=== PATIENT | male | born 1950 | race Caucasian/White ===

== ENCOUNTER → 2017-05-14 08:14 | Outpatient (CLI) | payer OTHER | END | disposition home or self-care (01) | LOC: LAB 08:14 | DX: D72.1 Eosinophilia (principal); B65.9 Schistosomiasis, unspecified; B78.9 Strongyloidiasis, unspecified ==

== ENCOUNTER → 2017-08-03 06:58 | Outpatient (CLI) | payer OTHER | END | disposition home or self-care (01) | LOC: LAB 06:58 | DX: E11.9 Type 2 diabetes mellitus without complications (principal); E78.2 Mixed hyperlipidemia; N39.0 Urinary tract infection, site not specified; E04.0 Nontoxic diffuse goiter; D53.9 Nutritional anemia, unspecified; D55.9 Anemia due to enzyme disorder, unspecified; D58.2 Other hemoglobinopathies; N36.0 Urethral fistula; I11.9 Hypertensive heart disease without heart failure ==

== ENCOUNTER 2017-12-10 06:32 | Outpatient (CLI) | payer OTHER | END 2017-12-10 06:37 | disposition home or self-care (01) | LOC: LAB 06:32 | DX: I10 Essential (primary) hypertension (principal); E78.4 Other hyperlipidemia; E03.4 Atrophy of thyroid (acquired); E11.9 Type 2 diabetes mellitus without complications ==

== ENCOUNTER 2018-03-19 07:18 | Outpatient (CLI) | payer OTHER | END 2018-03-19 07:31 | disposition home or self-care (01) | LOC: LAB 07:18 | DX: I11.0 Hypertensive heart disease with heart failure (principal); D53.8 Other specified nutritional anemias; N39.0 Urinary tract infection, site not specified; N36.2 Urethral caruncle; E11.9 Type 2 diabetes mellitus without complications; E78.2 Mixed hyperlipidemia; E04.0 Nontoxic diffuse goiter; E03.8 Other specified hypothyroidism ==

== ENCOUNTER 2018-06-30 09:21 | Emergency (ER) | payer OTHER ==
[~2018-06-30] VITALS: Ht 175.3 cm; Wt 92.1 kg
[2018-06-30] MEDS ORDERED: FORTAMET1000 MG PO (09:39)
[2018-06-30] MEDS ORDERED: VYTORIN 10-201 EACH PO (09:39)
[2018-06-30] MEDS ORDERED: AZO1 EACH MC (09:40)
[2018-06-30] MEDS ORDERED: SYNTHROID50 MCG PO (09:40)
[2018-06-30] MEDS ORDERED: [UNRECOGNIZED DRUG - OTHER] (09:41)
[2018-06-30] MEDS ORDERED: [UNRECOGNIZED DRUG - OTHER] (09:42)
[2018-06-30] MEDS ORDERED: TUSSI-PRES LIQ118 ML PO (10:57)
== END 2018-06-30 15:30 | disposition home or self-care (01) ==
LOC: ER 09:21
DX: J06.9 Acute upper respiratory infection, unspecified (principal)

== ENCOUNTER 2018-07-20 07:39 | Outpatient (CLI) | payer OTHER ==
[~2018-07-20 07:39] MED LIST: AZO1 EACH MC; FORTAMET1000 MG PO; SYNTHROID50 MCG PO; TUSSI-PRES LIQ118 ML PO; VYTORIN 10-201 EACH PO; [UNRECOGNIZED DRUG - OTHER]; [UNRECOGNIZED DRUG - OTHER]
== END 2018-07-20 07:51 | disposition home or self-care (01) ==
LOC: LAB 07:39
DX: I10 Essential (primary) hypertension (principal); D53.8 Other specified nutritional anemias; N36.0 Urethral fistula; E11.9 Type 2 diabetes mellitus without complications; E04.0 Nontoxic diffuse goiter; E78.2 Mixed hyperlipidemia; Z12.11 Encounter for screening for malignant neoplasm of colon; E55.9 Vitamin D deficiency, unspecified; E78.4 Other hyperlipidemia

== ENCOUNTER 2018-12-13 06:16 | Outpatient (CLI) | payer OTHER | END 2018-12-13 09:40 | disposition home or self-care (01) | LOC: LAB 06:16 | DX: D53.8 Other specified nutritional anemias (principal); N39.0 Urinary tract infection, site not specified; N36.2 Urethral caruncle; E78.2 Mixed hyperlipidemia; E11.9 Type 2 diabetes mellitus without complications; E04.0 Nontoxic diffuse goiter; I10 Essential (primary) hypertension; E03.8 Other specified hypothyroidism; E78.89 Other lipoprotein metabolism disorders ==

== ENCOUNTER → 2019-04-04 06:25 | Outpatient (CLI) | payer OTHER | END | disposition home or self-care (01) | LOC: LAB 06:25 | DX: I10 Essential (primary) hypertension (principal); E78.49 Other hyperlipidemia; E03.8 Other specified hypothyroidism; N39.0 Urinary tract infection, site not specified; E11.9 Type 2 diabetes mellitus without complications ==

== ENCOUNTER 2019-07-28 07:03 | Outpatient (CLI) | payer OTHER | END 2019-07-28 07:17 | disposition home or self-care (01) | LOC: LAB 07:03 | DX: I11.0 Hypertensive heart disease with heart failure (principal); D53.9 Nutritional anemia, unspecified; N39.0 Urinary tract infection, site not specified; E78.2 Mixed hyperlipidemia; E04.8 Other specified nontoxic goiter; N39.3 Stress incontinence (female) (male); E78.5 Hyperlipidemia, unspecified; E03.8 Other specified hypothyroidism; E11.9 Type 2 diabetes mellitus without complications ==

== ENCOUNTER 2019-12-27 06:25 | Outpatient (CLI) | payer OTHER | END 2019-12-27 06:45 | disposition home or self-care (01) | LOC: LAB 06:25 | PROVIDERS: ATTEND Specialist | DX: I11.0 Hypertensive heart disease with heart failure (principal); D53.8 Other specified nutritional anemias; N39.0 Urinary tract infection, site not specified; E04.8 Other specified nontoxic goiter; E55.9 Vitamin D deficiency, unspecified; E58 Dietary calcium deficiency; E22.2 Syndrome of inappropriate secretion of antidiuretic hormone; E78.49 Other hyperlipidemia; E03.8 Other specified hypothyroidism; E11.9 Type 2 diabetes mellitus without complications ==

== ENCOUNTER 2020-05-08 06:39 | Outpatient (CLI) | payer OTHER | END 2020-05-08 06:59 | disposition home or self-care (01) | LOC: LAB 06:39 | PROVIDERS: ATTEND Internal Medicine Endocrinology, Diabetes & Metabolism | DX: I10 Essential (primary) hypertension (principal); D53.8 Other specified nutritional anemias; N39.0 Urinary tract infection, site not specified; E78.2 Mixed hyperlipidemia; N36.2 Urethral caruncle; E04.8 Other specified nontoxic goiter; I20.8 Other forms of angina pectoris ==

== ENCOUNTER 2020-05-15 15:15 | Outpatient (CLI) | payer OTHER | END 2020-05-15 15:20 | disposition home or self-care (01) | LOC: LAB 15:15 | PROVIDERS: ATTEND Internal Medicine Allergy & Immunology | DX: B65.1 Schistosomiasis due to Schistosoma mansoni [intestinal schistosomiasis] (principal); D72.19 Other eosinophilia ==

== ENCOUNTER 2020-10-09 06:33 | Outpatient (CLI) | payer OTHER | END 2020-10-09 06:47 | disposition home or self-care (01) | LOC: LAB 06:33 | PROVIDERS: ATTEND Internal Medicine Endocrinology, Diabetes & Metabolism | DX: E04.9 Nontoxic goiter, unspecified (principal); M25.562 Pain in left knee ==

== ENCOUNTER → 2020-10-24 07:11 | Outpatient (CLI) | payer OTHER | END | disposition home or self-care (01) | LOC: LAB 07:11 | PROVIDERS: ATTEND Specialist | DX: E11.9 Type 2 diabetes mellitus without complications (principal) ==

== ENCOUNTER 2020-10-24 08:36 | Outpatient (CLI) | payer OTHER | END 2020-10-24 09:00 | disposition home or self-care (01) | LOC: TOM 08:36 | PROVIDERS: ATTEND Specialist | DX: R19.09 Other intra-abdominal and pelvic swelling, mass and lump (principal); K86.89 Other specified diseases of pancreas ==

== ENCOUNTER 2020-10-30 07:58 | Outpatient (CLI) | payer OTHER | END 2020-10-30 08:10 | disposition home or self-care (01) | LOC: LAB 07:58 | PROVIDERS: ATTEND Specialist | DX: C25.2 Malignant neoplasm of tail of pancreas (principal) ==

== ENCOUNTER 2020-10-31 08:22 | Outpatient (CLI) | payer OTHER | END 2020-10-31 08:23 | disposition home or self-care (01) | LOC: LAB 08:22 | DX: Z01.812 Encounter for preprocedural laboratory examination (principal) ==

== ENCOUNTER → 2021-02-11 07:20 | Outpatient (CLI) | payer OTHER | END | disposition home or self-care (01) | LOC: LAB 07:20 | PROVIDERS: ATTEND Specialist | DX: I10 Essential (primary) hypertension (principal); E78.49 Other hyperlipidemia; E03.8 Other specified hypothyroidism; E11.9 Type 2 diabetes mellitus without complications; K85.80 Other acute pancreatitis without necrosis or infection; R97.21 Rising PSA following treatment for malignant neoplasm of prostate ==

== ENCOUNTER 2021-06-12 07:11 | Outpatient (CLI) | payer OTHER | END 2021-06-12 07:27 | disposition home or self-care (01) | LOC: LAB 07:11 | PROVIDERS: ATTEND Specialist | DX: I10 Essential (primary) hypertension (principal); D53.9 Nutritional anemia, unspecified; N39.0 Urinary tract infection, site not specified; E78.2 Mixed hyperlipidemia; K76.1 Chronic passive congestion of liver; E11.9 Type 2 diabetes mellitus without complications ==

== ENCOUNTER → 2021-11-12 07:22 | Outpatient (CLI) | payer OTHER | END | disposition home or self-care (01) | LOC: LAB 07:22 | PROVIDERS: ATTEND Internal Medicine Endocrinology, Diabetes & Metabolism | DX: E78.2 Mixed hyperlipidemia (principal); I10 Essential (primary) hypertension; D53.9 Nutritional anemia, unspecified; E11.9 Type 2 diabetes mellitus without complications; D56.1 Beta thalassemia; E55.9 Vitamin D deficiency, unspecified; N36.2 Urethral caruncle; K76.1 Chronic passive congestion of liver; E58 Dietary calcium deficiency; E78.5 Hyperlipidemia, unspecified; E03.5 Myxedema coma; E74.31 Sucrase-isomaltase deficiency; R97.21 Rising PSA following treatment for malignant neoplasm of prostate ==

== ENCOUNTER 2022-03-24 06:41 | Outpatient (CLI) | payer OTHER | END 2022-03-24 06:42 | disposition home or self-care (01) | LOC: LAB 06:41 | PROVIDERS: ATTEND Specialist | DX: I10 Essential (primary) hypertension (principal); E78.5 Hyperlipidemia, unspecified; E03.1 Congenital hypothyroidism without goiter; E11.9 Type 2 diabetes mellitus without complications ==

== ENCOUNTER 2022-07-23 06:51 | Outpatient (CLI) | payer OTHER | END 2022-07-23 07:16 | disposition home or self-care (01) | LOC: LAB 06:51 | PROVIDERS: ATTEND Internal Medicine Endocrinology, Diabetes & Metabolism | DX: D53.9 Nutritional anemia, unspecified (principal); I11.0 Hypertensive heart disease with heart failure; N39.0 Urinary tract infection, site not specified; E78.2 Mixed hyperlipidemia; E04.9 Nontoxic goiter, unspecified; N36.2 Urethral caruncle; E11.9 Type 2 diabetes mellitus without complications; I10 Essential (primary) hypertension; E78.5 Hyperlipidemia, unspecified; E03.5 Myxedema coma; K86.89 Other specified diseases of pancreas ==

== ENCOUNTER 2022-10-24 06:36 | Outpatient (CLI) | payer OTHER | END 2022-10-24 06:38 | disposition home or self-care (01) | LOC: LAB 06:36 | PROVIDERS: ATTEND Specialist | DX: E78.5 Hyperlipidemia, unspecified (principal); I10 Essential (primary) hypertension; E03.5 Myxedema coma; E11.9 Type 2 diabetes mellitus without complications; N39.0 Urinary tract infection, site not specified ==

== ENCOUNTER 2023-01-09 07:10 | Outpatient (CLI) | payer OTHER ==
[2023-01-09 08:46] LABS: ALBUMIN 3.4 gm/dL (3.4-5.0); BILIRUBIN TOTAL 0.36 mg/dL (0.3-1.2); CALCIUM 8.9 mg/dL (8.5-10.1); CREATININE SERUM 1.06 mg/dL (0.70-1.30); GFR 68.29; GLOBULINA 3.3 G/DL (2.4-3.5); POTASSIUM 4.52 mEq/L (3.5-5.1); TOTAL PROTEIN 6.7 gm/dL (6.4-8.2)
== END 2023-01-09 07:11 | disposition home or self-care (01) ==
LOC: LAB 07:10
PROVIDERS: ATTEND Internal Medicine Endocrinology, Diabetes & Metabolism
DX: C25.3 Malignant neoplasm of pancreatic duct (principal); C18.9 Malignant neoplasm of colon, unspecified; D50.1 Sideropenic dysphagia; E04.9 Nontoxic goiter, unspecified; I10 Essential (primary) hypertension; N39.0 Urinary tract infection, site not specified; N36.2 Urethral caruncle; E11.9 Type 2 diabetes mellitus without complications; K76.2 Central hemorrhagic necrosis of liver

== ENCOUNTER 2023-02-25 06:40 | Outpatient (CLI) | payer OTHER ==
[2023-02-25 07:27] LABS: URINE APPEARANCE Clear; URINE BILIRRUBIN Negative (NEGATIVE); URINE BLOOD Negative; URINE COLOR Yellow; URINE GLUCOSE Negative (NEGATIVE); URINE LEUKOCYTE Negative; URINE NITRATE Negative; URINE PROTEIN Negative (NEGATIVE); URINE UROBILINOGEN 0.2 E.U./dl
[2023-02-25 07:32] LABS: URINE BACTERIA 17.6 uL (0.0-1933); URINE RBC 9.3 uL (0.0-20.8)
[2023-02-25 07:39] LABS: URINE WBC 1.3 uL (0.0-23.2)
[2023-02-25 08:25] LABS: HEMATOCRIT 35.5 % (39.0-48.0); HEMOGLOBIN 11.9 g/dL (13-16.00); MEAN CELL VOLUME 91.6 fL (80.0-100.00); MEAN CORPUSCULAR HEMOGLOBIN 30.8 pg (27.00-32.0); MEAN CORPUSCULAR HGB CONC 33.6 g/dl (32.0-36.0); PLATELET COUNT 249 K/uL (150-450); RED BLOOD COUNT 3.88 M/uL (4.00-6.00); RED CELL DISTRIBUTION WIDTH 13.9 % (11.5-14.5)
[2023-02-25 08:37] LABS: ALBUMIN 3.2 gm/dL (3.4-5.0); BILIRUBIN TOTAL 0.62 mg/dL (0.3-1.2); CHOL HDL RATIO 3.4 (0-5.0); CREATININE SERUM 1.13 mg/dL (0.70-1.30); FREE TRIODOTIRONINE 2.23 pg/ml (2.18-3.98); GFR 63.43; GLOBULINA 3.4 G/DL (2.4-3.5); POTASSIUM 4.17 mEq/L (3.5-5.1); PROSTATIC SPECIFIC ANTIGEN 2.13 NG/ML (0.010-4.00); T4 FREE 1.12 NG/ML (0.76-1.46); T4 TOTAL 8.35 UG/DL (4.5-12.1); TOTAL PROTEIN 6.6 gm/dL (6.4-8.2); TSH 1.35 uIU/mL (0.358-3.74)
== END 2023-02-25 06:41 | disposition home or self-care (01) ==
LOC: LAB 06:40
PROVIDERS: ATTEND Specialist
DX: D50.1 Sideropenic dysphagia (principal); E78.5 Hyperlipidemia, unspecified; E03.5 Myxedema coma; E11.9 Type 2 diabetes mellitus without complications

== ENCOUNTER 2023-06-23 07:12 | Outpatient (CLI) | payer OTHER ==
[2023-06-23 08:32] LABS: HEMATOCRIT 37.2 % (39.0-48.0); HEMOGLOBIN 12.5 g/dL (13-16.00); MEAN CELL VOLUME 93.2 fL (80.0-100.00); MEAN CORPUSCULAR HEMOGLOBIN 31.3 pg (27.00-32.0); MEAN CORPUSCULAR HGB CONC 33.5 g/dl (32.0-36.0); PLATELET COUNT 255 K/uL (150-450); RED BLOOD COUNT 3.99 M/uL (4.00-6.00); RED CELL DISTRIBUTION WIDTH 13.4 % (11.5-14.5)
[2023-06-23 08:57] LABS: URINE APPEARANCE Clear; URINE BILIRRUBIN Negative (NEGATIVE); URINE BLOOD Negative; URINE COLOR Yellow; URINE GLUCOSE Negative (NEGATIVE); URINE LEUKOCYTE Negative; URINE NITRATE Negative; URINE PROTEIN Negative (NEGATIVE); URINE UROBILINOGEN 0.2 E.U./dl
[2023-06-23 09:02] LABS: URINE RBC 6.7 uL (0.0-20.8)
[2023-06-23 09:18] LABS: ALBUMIN 3.3 gm/dL (3.4-5.0); BILIRUBIN TOTAL 0.52 mg/dL (0.3-1.2); CALCIUM 8.9 mg/dL (8.5-10.1); CHOL HDL RATIO 3.6 (0-5.0); CREATININE SERUM 0.98 mg/dL (0.70-1.30); FERRITIN 25.3 NG/ML (26-388); GFR 74.56; GLOBULINA 3.3 G/DL (2.4-3.5); POTASSIUM 4.47 mEq/L (3.5-5.1); T4 TOTAL 9.02 UG/DL (4.5-12.1); TOTAL PROTEIN 6.6 gm/dL (6.4-8.2); TSH 1.43 uIU/mL (0.358-3.74)
[2023-06-23 09:19] LABS: URINE BACTERIA 2.5 uL (0.0-1933); URINE EPITHELIAL CELLS 0.1 uL (0.0-38.8); URINE WBC 0.4 uL (0.0-23.2)
[2023-06-23 11:55] LABS: ob NEGATIVE (NEGATIVE)
== END 2023-06-23 07:31 | disposition home or self-care (01) ==
LOC: EDBD 07:12 → LAB 07:12
PROVIDERS: ATTEND Specialist
DX: I10 Essential (primary) hypertension (principal); E78.5 Hyperlipidemia, unspecified; E03.5 Myxedema coma; E11.9 Type 2 diabetes mellitus without complications; E78.2 Mixed hyperlipidemia; N39.0 Urinary tract infection, site not specified; D50.1 Sideropenic dysphagia; D53.9 Nutritional anemia, unspecified; N18.2 Chronic kidney disease, stage 2 (mild); Z12.11 Encounter for screening for malignant neoplasm of colon

== ENCOUNTER 2023-11-16 07:23 | Outpatient (CLI) | payer OTHER ==
[2023-11-16 08:13] LABS: URINE APPEARANCE Clear; URINE BILIRRUBIN Negative (NEGATIVE); URINE BLOOD Negative; URINE COLOR Yellow; URINE GLUCOSE Negative (NEGATIVE); URINE LEUKOCYTE Negative; URINE NITRATE Negative; URINE PROTEIN Negative (NEGATIVE); URINE UROBILINOGEN 0.2 E.U./dl
[2023-11-16 08:17] LABS: HEMOGLOBIN 12.3 g/dL (13-16.00); MEAN CELL VOLUME 93.4 fL (80.0-100.00); MEAN CORPUSCULAR HEMOGLOBIN 31.8 pg (27.00-32.0); PLATELET COUNT 270 K/uL (150-450); RED BLOOD COUNT 3.86 M/uL (4.00-6.00); RED CELL DISTRIBUTION WIDTH 13.2 % (11.5-14.5); URINE EPITHELIAL CELLS 2.1 uL (0.0-38.8); URINE RBC 5.9 uL (0.0-20.8)
[2023-11-16 08:23] LABS: URINE WBC 1.6 uL (0.0-23.2)
[2023-11-16 09:43] LABS: ALBUMIN 3.5 gm/dL (3.4-5.0); BILIRUBIN TOTAL 0.66 mg/dL (0.3-1.2); CALCIUM 8.8 mg/dL (8.5-10.1); CHOL HDL RATIO 3.7 (0-5.0); CREATININE SERUM 1.19 mg/dL (0.70-1.30); GFR 59.59; GLOBULINA 3.4 G/DL (2.4-3.5); POTASSIUM 4.4 mEq/L (3.5-5.1); T4 TOTAL 9.98 UG/DL (4.5-12.1); TOTAL PROTEIN 6.9 gm/dL (6.4-8.2); TSH 1.4 uIU/mL (0.358-3.74)
== END 2023-11-16 07:24 | disposition home or self-care (01) ==
LOC: LAB 07:23
PROVIDERS: ATTEND Specialist
DX: E78.5 Hyperlipidemia, unspecified (principal); E03.5 Myxedema coma; E11.9 Type 2 diabetes mellitus without complications; I10 Essential (primary) hypertension

== ENCOUNTER → 2023-12-29 06:35 | Outpatient (CLI) | payer OTHER ==
[2023-12-29 08:06] LABS: PH,URINE 5.5 (5.0-8.0); URINE APPEARANCE Clear; URINE BILIRRUBIN Negative (NEGATIVE); URINE BLOOD Negative; URINE COLOR Yellow; URINE GLUCOSE Negative (NEGATIVE); URINE KETONE Negative (NEGATIVE); URINE LEUKOCYTE Negative; URINE NITRATE Negative; URINE PROTEIN Negative (NEGATIVE); URINE UROBILINOGEN 0.2 E.U./dl
[2023-12-29 08:10] LABS: URINE RBC 4.8 uL (0.0-20.8)
[2023-12-29 08:15] LABS: URINE BACTERIA 2.5 uL (0.0-1933); URINE CAST 0.15 uL (0.0-1.40); URINE EPITHELIAL CELLS 0.9 uL (0.0-38.8); URINE WBC 0.6 uL (0.0-23.2)
[2023-12-29 08:21] LABS: HEMATOCRIT 36.9 % (39.0-48.0); HEMOGLOBIN 12.1 g/dL (13-16.00); MEAN CELL VOLUME 93.2 fL (80.0-100.00); MEAN CORPUSCULAR HEMOGLOBIN 30.5 pg (27.00-32.0); MEAN CORPUSCULAR HGB CONC 32.8 g/dl (32.0-36.0); PLATELET COUNT 277 K/uL (150-450); RED BLOOD COUNT 3.96 M/uL (4.00-6.00); RED CELL DISTRIBUTION WIDTH 13.2 % (11.5-14.5)
[2023-12-29 09:16] LABS: GAMMA GLUTAMIL TRANSFERASE 27 U/L (15-85)
[2023-12-29 09:24] LABS: ALBUMIN 3.5 gm/dL (3.4-5.0); ALKALINE PHOSPHATASE 73 U/L (50-136); ALT/SGPT 68 U/L (12-78); ANION GAP 9 (10.0-20.0); AST/SGOT 30 U/L (15-37); BILIRUBIN TOTAL 0.48 mg/dL (0.3-1.2); BLOOD UREA NITROGEN 18 mg/dL (7-18); BUN CREA RATIO 18 (7.0-25.0); CALCIUM 8.9 mg/dL (8.5-10.1); CARBON DIOXIDE 28 mEq/L (21-32); CHLORIDE 104 mmol/L (98-107); CHOL HDL RATIO 4.3 (0-5.0); CHOLESTEROL 188 mg/dL (0-200); CREATININE SERUM 1.02 mg/dL (0.70-1.30); GLOBULINA 3.5 G/DL (2.4-3.5); GLUCOSE FASTING 93 mg/dL (65-100); HDL 44 mg/dl (40-60); LDH 139 U/L (87-241); LIPASE 27 U/L (13-75); OSMOLALITY SERUM 275 MOSM/KG (275-295); PHOSPHOKINASE CREATININE 119 U/L (39-308); POTASSIUM 4.34 mEq/L (3.5-5.1); SODIUM 137 mmol/L (136-145); T4 FREE 1.18 NG/ML (0.76-1.46); TOTAL IRON BINDING CAPACITY 348 ug/dl (250-450)
[2023-12-29 09:28] LABS: C-REACTIVE PROTEIN < 0.29 MG/DL (0.00-0.29); FERRITIN 19.6 NG/ML (26-388); LDL 93 mg/dl (0-130); TRIGLYCERIDES 257 mg/dL (0-150); VLDL 51 (0-39)
== END | disposition home or self-care (01) ==
LOC: LAB 06:35
PROVIDERS: ATTEND Urology
DX: I11.0 Hypertensive heart disease with heart failure (principal); D03.9 Melanoma in situ, unspecified; E78.2 Mixed hyperlipidemia; E04.9 Nontoxic goiter, unspecified; E11.9 Type 2 diabetes mellitus without complications; N39.0 Urinary tract infection, site not specified; D50.1 Sideropenic dysphagia; N40.0 Benign prostatic hyperplasia without lower urinary tract symptoms; Z12.11 Encounter for screening for malignant neoplasm of colon; K76.1 Chronic passive congestion of liver; R97.21 Rising PSA following treatment for malignant neoplasm of prostate

== ENCOUNTER 2024-03-28 06:38 | Outpatient (CLI) | payer OTHER ==
[2024-03-28 07:36] LABS: HEMATOCRIT 37.5 % (39.0-48.0); HEMOGLOBIN 12.6 g/dL (13-16.00); MEAN CELL VOLUME 92.2 fL (80.0-100.00); MEAN CORPUSCULAR HEMOGLOBIN 31.1 pg (27.00-32.0); MEAN CORPUSCULAR HGB CONC 33.8 g/dl (32.0-36.0); PLATELET COUNT 250 K/uL (150-450); RED BLOOD COUNT 4.06 M/uL (4.00-6.00); RED CELL DISTRIBUTION WIDTH 13.3 % (11.5-14.5)
[2024-03-28 07:42] LABS: PH,URINE 5.5 (5.0-8.0); URINE APPEARANCE Cloudy; URINE BACTERIA 112.5 uL (0.0-1933); URINE BILIRRUBIN Negative (NEGATIVE); URINE BLOOD Negative; URINE COLOR Yellow; URINE EPITHELIAL CELLS 3.6 uL (0.0-38.8); URINE GLUCOSE Negative (NEGATIVE); URINE KETONE Negative (NEGATIVE); URINE LEUKOCYTE Negative; URINE NITRATE Negative; URINE PROTEIN 30 (NEGATIVE); URINE UROBILINOGEN 0.2 E.U./dl; URINE WBC 46.3 uL (0.0-23.2)
[2024-03-28 08:03] LABS: URINE CAST 0.14 uL (0.0-1.40)
[2024-03-28 08:55] LABS: ALBUMIN 3.4 gm/dL (3.4-5.0); BILIRUBIN TOTAL 0.39 mg/dL (0.3-1.2); CALCIUM 8.9 mg/dL (8.5-10.1); CHOL HDL RATIO 3.8 (0-5.0); CREATININE SERUM 1.1 mg/dL (0.70-1.30); GFR 65.26; GLOBULINA 3.7 G/DL (2.4-3.5); POTASSIUM 4.62 mEq/L (3.5-5.1); PROSTATIC SPECIFIC ANTIGEN 2.47 NG/ML (0.010-4.00); T4 TOTAL 9.79 UG/DL (4.5-12.1); TOTAL PROTEIN 7.1 gm/dL (6.4-8.2); TSH 1.99 uIU/mL (0.358-3.74)
== END 2024-03-28 06:44 | disposition home or self-care (01) ==
LOC: LAB 06:38
DX: R97.21 Rising PSA following treatment for malignant neoplasm of prostate (principal); I10 Essential (primary) hypertension; E78.5 Hyperlipidemia, unspecified; E03.5 Myxedema coma; E11.9 Type 2 diabetes mellitus without complications; D64.9 Anemia, unspecified

== ENCOUNTER → 2024-06-03 07:26 | Outpatient (CLI) | payer OTHER ==
[2024-06-03 08:32] LABS: HEMATOCRIT 37.6 % (39.0-48.0); HEMOGLOBIN 12.5 g/dL (13-16.00); MEAN CELL VOLUME 92.4 fL (80.0-100.00); MEAN CORPUSCULAR HEMOGLOBIN 30.8 pg (27.00-32.0); MEAN CORPUSCULAR HGB CONC 33.3 g/dl (32.0-36.0); PLATELET COUNT 270 K/uL (150-450); RED BLOOD COUNT 4.07 M/uL (4.00-6.00); RED CELL DISTRIBUTION WIDTH 13.1 % (11.5-14.5)
[2024-06-03 08:47] LABS: PH,URINE 5.5 (5.0-8.0); URINE APPEARANCE Clear; URINE BILIRRUBIN Negative (NEGATIVE); URINE BLOOD Negative; URINE COLOR Yellow; URINE GLUCOSE Negative (NEGATIVE); URINE KETONE Negative (NEGATIVE); URINE LEUKOCYTE Negative; URINE NITRATE Negative; URINE PROTEIN Negative (NEGATIVE); URINE UROBILINOGEN 0.2 E.U./dl
[2024-06-03 08:51] LABS: URINE BACTERIA 4.8 uL (0.0-1933); URINE RBC 4.1 uL (0.0-20.8)
[2024-06-03 09:02] LABS: URINE EPITHELIAL CELLS 0.6 uL (0.0-38.8); URINE WBC 0.6 uL (0.0-23.2)
[2024-06-03 09:35] LABS: ALBUMIN 3.3 gm/dL (3.4-5.0); BILIRUBIN TOTAL 0.52 mg/dL (0.3-1.2); CHOL HDL RATIO 3.4 (0-5.0); CREATININE SERUM 1.12 mg/dL (0.70-1.30); GFR 63.74; GLOBULINA 3.5 G/DL (2.4-3.5); POTASSIUM 4.76 mEq/L (3.5-5.1); T4 FREE 1.11 NG/ML (0.76-1.46); TOTAL PROTEIN 6.8 gm/dL (6.4-8.2); TSH 1.17 uIU/mL (0.358-3.74)
== END | disposition home or self-care (01) ==
LOC: LAB 07:26
PROVIDERS: ATTEND Internal Medicine Endocrinology, Diabetes & Metabolism
DX: I11.0 Hypertensive heart disease with heart failure (principal); N39.0 Urinary tract infection, site not specified; N36.2 Urethral caruncle; D53.9 Nutritional anemia, unspecified; E78.2 Mixed hyperlipidemia; E11.9 Type 2 diabetes mellitus without complications; E04.9 Nontoxic goiter, unspecified; Z12.11 Encounter for screening for malignant neoplasm of colon

== ENCOUNTER 2024-07-26 06:24 | Outpatient (CLI) | payer OTHER ==
[2024-07-26 07:44] LABS: HEMATOCRIT 37.3 % (39.0-48.0); HEMOGLOBIN 12.3 g/dL (13-16.00); MEAN CELL VOLUME 94.3 fL (80.0-100.00); MEAN CORPUSCULAR HGB CONC 32.9 g/dl (32.0-36.0); PLATELET COUNT 253 K/uL (150-450); RED BLOOD COUNT 3.95 M/uL (4.00-6.00); RED CELL DISTRIBUTION WIDTH 13.2 % (11.5-14.5)
[2024-07-26 08:00] LABS: PH,URINE 5.5 (5.0-8.0); URINE APPEARANCE Clear; URINE BILIRRUBIN Negative (NEGATIVE); URINE BLOOD Negative; URINE COLOR Yellow; URINE GLUCOSE Negative (NEGATIVE); URINE KETONE Negative (NEGATIVE); URINE LEUKOCYTE Negative; URINE NITRATE Negative; URINE PROTEIN Negative (NEGATIVE)
[2024-07-26 08:05] LABS: URINE BACTERIA 4.8 uL (0.0-1933); URINE RBC 3.3 uL (0.0-20.8)
[2024-07-26 08:12] LABS: URINE EPITHELIAL CELLS 0.1 uL (0.0-38.8); URINE WBC 0.6 uL (0.0-23.2)
[2024-07-26 08:35] LABS: ALBUMIN 3.3 gm/dL (3.4-5.0); BILIRUBIN TOTAL 0.54 mg/dL (0.3-1.2); CALCIUM 8.9 mg/dL (8.5-10.1); CHOL HDL RATIO 3.4 (0-5.0); CREATININE SERUM 1.06 mg/dL (0.70-1.30); GFR 67.93; GLOBULINA 3.4 G/DL (2.4-3.5); POTASSIUM 4.43 mEq/L (3.5-5.1); T4 TOTAL 9.04 UG/DL (4.5-12.1); TOTAL PROTEIN 6.7 gm/dL (6.4-8.2); TSH 2.02 uIU/mL (0.358-3.74)
== END 2024-07-26 06:32 | disposition home or self-care (01) ==
LOC: LAB 06:24
DX: E78.5 Hyperlipidemia, unspecified (principal); E03.5 Myxedema coma; I10 Essential (primary) hypertension; E11.9 Type 2 diabetes mellitus without complications

== ENCOUNTER 2024-12-06 06:48 | Outpatient (CLI) | payer OTHER ==
[2024-12-06 07:37] LABS: BASO % 0.8 % (0.1-1.2); EOS # 0.33 (0.04-0.54); EOS % 4.3 % (0.7-7.0); LYMPH # 2.27 (1.18-3.74); LYMPH % 29.3 % (19.3-53.1); MEAN PLATELET VOLUME 10.10 fl (9.4-12.4); MONO # 0.77 (0.24-0.82); MONO % 9.9 % (4.7-12.5); NEUT # 4.31 (1.56-6.13); NEUT % 55.4 % (34.0-71.1); RED CELL DISTRIBUTION WIDTH 12.6 % (11.6-14.4)
[2024-12-06 08:11] LABS: URINE APPEARANCE Cloudy; URINE BILIRRUBIN Negative (NEGATIVE); URINE BLOOD Negative; URINE COLOR Yellow; URINE GLUCOSE Negative (NEGATIVE); URINE KETONE Negative (NEGATIVE); URINE LEUKOCYTE Negative; URINE NITRATE Negative; URINE PROTEIN Trace (NEGATIVE); URINE UROBILINOGEN 0.2 E.U./dl
[2024-12-06 08:16] LABS: URINE BACTERIA 21.6 uL (0.0-1933); URINE EPITHELIAL CELLS 1.8 uL (0.0-38.8); URINE RBC 6.7 uL (0.0-20.8); URINE WBC 12.6 uL (0.0-23.2)
[2024-12-06 08:58] LABS: ALT/SGPT 23.0 U/L (12-78); AST/SGOT 13.0 U/L (15-37); BILIRUBIN TOTAL 0.52 mg/dL (0.3-1.2); BUN CREA RATIO 17.0 (7.0-25.0); CHOL HDL RATIO 3.1 (0-5.0); CREATININE SERUM 1.05 mg/dL (0.70-1.30); GFR 68.67; GLOBULINA 3.6 G/DL (2.4-3.5); GLUCOSE FASTING 98.0 mg/dL (65-100); HDL 38.0 mg/dl (40-60); LDH 112.0 U/L (87-241); LDL 45.0 mg/dl (0-130); OSMOLALITY SERUM 278.0 MOSM/KG (275-295); PHOSPHOKINASE CREATININE 86.0 U/L (39-308); PROSTATIC SPECIFIC ANTIGEN 1.54 NG/ML (0.010-4.00); T3 UPTAKE 34.0 % (33-40); T4 TOTAL 8.06 UG/DL (4.5-12.1); TSH 1.87 uIU/mL (0.358-3.74); VLDL 32.0 (0-39)
[2024-12-06 08:59] LABS: URINE CAST 0.14 uL (0.0-1.40); URINE SPERM MANY
[2024-12-06 09:48] LABS: GAMMA GLUTAMIL TRANSFERASE 17.0 U/L (15-85)
[2024-12-06 14:31] LABS: T3 TOTAL 1.06 ng/ml (0.846-2.02); VITAMIN D3 25 HYDROXY 54.21 ng/ml (30-120)
[2024-12-07 09:08] LABS: % FREE PSA 39.2 % (.)
== END 2024-12-06 06:49 | disposition home or self-care (01) ==
LOC: LAB 06:48
PROVIDERS: ATTEND Internal Medicine Endocrinology, Diabetes & Metabolism
DX: I10 Essential (primary) hypertension (principal); E78.5 Hyperlipidemia, unspecified; E03.5 Myxedema coma; E11.9 Type 2 diabetes mellitus without complications; D53.9 Nutritional anemia, unspecified; E78.2 Mixed hyperlipidemia; N39.0 Urinary tract infection, site not specified; N36.2 Urethral caruncle; E04.9 Nontoxic goiter, unspecified; K76.1 Chronic passive congestion of liver; E61.3 Manganese deficiency; E83.59 Other disorders of calcium metabolism; E53.8 Deficiency of other specified B group vitamins; E55.9 Vitamin D deficiency, unspecified; Z12.11 Encounter for screening for malignant neoplasm of colon; K92.1 Melena

== ENCOUNTER 2025-04-03 07:01 | Outpatient (CLI) | payer OTHER ==
[2025-04-03 08:53] LABS: URINE APPEARANCE Clear; URINE BILIRRUBIN Negative (NEGATIVE); URINE BLOOD Negative; URINE COLOR Yellow; URINE GLUCOSE Negative (NEGATIVE); URINE KETONE Negative (NEGATIVE); URINE LEUKOCYTE Trace; URINE NITRATE Negative; URINE PROTEIN Negative (NEGATIVE); URINE UROBILINOGEN 0.2 E.U./dl
[2025-04-03 08:55] LABS: BASO % 0.8 % (0.1-1.2); EOS # 0.39 (0.04-0.54); EOS % 5.0 % (0.7-7.0); LYMPH # 2.53 (1.18-3.74); LYMPH % 32.1 % (19.3-53.1); MEAN PLATELET VOLUME 10.70 fl (9.4-12.4); MONO # 0.73 (0.24-0.82); MONO % 9.3 % (4.7-12.5); NEUT # 4.14 (1.56-6.13); NEUT % 52.5 % (34.0-71.1); RED CELL DISTRIBUTION WIDTH 12.5 % (11.6-14.4)
[2025-04-03 08:57] LABS: URINE BACTERIA 11.4 uL (0.0-1933); URINE RBC 7.2 uL (0.0-20.8)
[2025-04-03 09:31] LABS: ALT/SGPT 26.0 U/L (12-78); AST/SGOT 13.0 U/L (15-37); BILIRUBIN TOTAL 0.44 mg/dL (0.3-1.2); BUN CREA RATIO 21.0 (7.0-25.0); CHOL HDL RATIO 3.4 (0-5.0); CREATININE SERUM 1.13 mg/dL (0.70-1.30); GFR 63.09; GLOBULINA 3.4 G/DL (2.4-3.5); GLUCOSE FASTING 104.0 mg/dL (65-100); HDL 40.0 mg/dl (40-60); LDL 59.0 mg/dl (0-130); OSMOLALITY SERUM 282.0 MOSM/KG (275-295); PHOSPHOKINASE CREATININE 94.0 U/L (39-308); T3 UPTAKE 34.0 % (33-40); T4 TOTAL 7.66 UG/DL (4.5-12.1); TSH 2.11 uIU/mL (0.358-3.74); VLDL 35.0 (0-39)
[2025-04-03 10:03] LABS: URINE CAST 0.00 uL (0.0-1.40); URINE EPITHELIAL CELLS 0.3 uL (0.0-38.8); URINE WBC 0.6 uL (0.0-23.2)
[2025-04-03 10:11] LABS: URINE YEAST MANY /hpf
[2025-04-03 10:45] LABS: URINE SPERM MODERATE
== END 2025-04-03 07:09 | disposition home or self-care (01) ==
LOC: LAB 07:01
DX: E78.5 Hyperlipidemia, unspecified (principal); I10 Essential (primary) hypertension; E03.9 Hypothyroidism, unspecified; E11.9 Type 2 diabetes mellitus without complications